=== PATIENT | female | born 1985 | race Two or more races ===

== ENCOUNTER 2022-11-10 09:52 | Outpatient (CLI) | payer OTHER | END 2022-11-10 10:08 | disposition home or self-care (01) | LOC: EDBD 09:52 → SONOGRAMA 09:52 | PROVIDERS: ATTEND Obstetrics & Gynecology | DX: N84.0 Polyp of corpus uteri (principal) ==

== ENCOUNTER 2024-07-18 08:54 | Outpatient (CLI) | payer OTHER | END 2024-07-18 09:09 | disposition home or self-care (01) | LOC: SONOGRAMA 08:54 | PROVIDERS: ATTEND Obstetrics & Gynecology | DX: N48.0 Leukoplakia of penis (principal); D25.0 Submucous leiomyoma of uterus | CPT/HCPCS: 72196 ==